=== PATIENT | male | born 1975 | race Caucasian/White ===

== ENCOUNTER 2016-08-05 11:13 | Day surgery (SDC) | payer OTHER ==
[2016-08-03 10:20] LABS: BASOPHILS 0.5 %; BASOPHILS ABSOLUTE 0.03 10/3/uL (0.0-0.16); EOSINOPHILS 3.7 %; EOSINOPHILS ABSOLUTE 0.24 10/3/uL (0.0-0.53); HEMATOCRIT 41.7 % (40.0-51.0); HEMOGLOBIN 14.1 g/dL (13.6-17.8); IMMATURE GRANULOCYTES 0.2 %; IMMATURE GRANULOCYTES ABSOLUTE 0.01 10/3/uL (0.0-0.11); LYMPHOCYTES 36.8 %; LYMPHOCYTES ABSOLUTE 2.38 10/3/uL (0.67-4.30); MEAN CORPUS HGB CONC 33.8 g/dL (32.0-36.0); MEAN CORPUSCULAR HEMOGLOB 31.6 pg (26.0-34.0); MEAN CORPUSCULAR VOLUME 93.5 fL (80-100); MEAN PLATELET VOLUME 9.9 fL (9.2-13.0); MONOCYTES 9.3 %; NEUTROPHILS 49.5 %; NEUTROPHILS ABSOLUTE 3.21 10/3/uL (2.02-8.40); PLATELET COUNT 274 10/3/uL (150-400); RBC DISTRIBUTION WIDTH 12.8 % (12.0-16.0); RED CELL COUNT 4.46 10/6/uL (4.7-6.1); WHITE BLOOD CELLS 6.5 10/3/uL (4.5-10.5)
[2016-08-03 10:34] LABS: BUN (BLOOD UREA NITROGEN) 14 MG/DL (6-23); CALCIUM, SERUM 8.8 MG/DL (8.5-10.4); CHLORIDE, SERUM 106 MMOL/L (96-112); CO2 (CARBON DIOXIDE) 29 MMOL/L (24-34); CREATININE 0.83 MG/DL (0.70-1.30); GFR AFRICAN AMERICAN 128 ML/MIN (>=60); GFR NON AFRICAN AMERICAN 110 ML/MIN (>=60); GLUCOSE, SERUM 51 MG/DL (60-99); POTASSIUM, SERUM 3.6 MMOL/L (3.5-5.3); SODIUM, SERUM 143 MMOL/L (135-148)
[2016-08-03 13:27] LABS: ASCORBIC ACID (UR NOT ORDER) 40 (NEG); BILIRUBIN, URINE NEGATIVE (NEG); KETONE, URINE NEGATIVE (NEG); LEUKOCYTE ESTERASE(NOT OR NEG (NEG); WBC (NOT ORDERED) (RFLEX) 1 (0-5)
--- NOTE | ~2016-08-05 | OP ---
Record Of Operation [facility] [address] [place]. [address] NAME: TOÑO NELSON : 75 STATUS : [facility]#: [id number] AGE: 40 ADM/REG DATE : 08/05/16 MR#: [id number] REPORT SERV DATE: 08/11/16 DICTATED BY: ABHI GRIFFITH DATE: 08/11/16 REPORT STATUS : Draft TRANSCRIBED BY: MODL DATE: 08/11/16 DATE OF PROCEDURE: 08/05/2016 PREOPERATIVE DIAGNOSIS: Right inguinal hernia. POSTOPERATIVE DIAGNOSES: A rather unusual pantaloon type right inguinal hernia, with both direct and indirect components, and then the indirect component with the hernia sac containing an essentially adherent sliding component of small bowel. PROCEDURE: Angela Prolene 2 mesh, right inguinal hernia repair. SURGEON: Abhi Griffith M.D. ANESTHESIA: General laryngeal mask. ESTIMATED BLOOD LOSS: Nil. FLUIDS: Crystalloid. SPECIMEN: Hernia sac. DRAINS: None. COMPLICATION: None. CONDITION: Good. INDICATIONS: Mr. Nelson is a 40-year-old, who I had seen earlier in office with a right inguinal hernia that did not appear to be at risk for bowel incarceration, and was not terribly symptomatic. As time has gone by, the hernia had gotten bigger and more painful interfering with activity, and after reviewing the options, we are recommending proceeding with repair. With the unilateral hernia, I have recommended open mesh repair to which he is agreeable. PROCEDURE IN DETAIL: After being identified and marked in preop holding, he was brought to the OR, positioned in supine. General laryngeal mask anesthesia was induced. Time-out was performed. The abdomen was prepped and draped sterilely. He received Ancef intravenously. We marked out anatomic landmarks and infiltrated a 0.25% Marcaine solution at the anterior and superior iliac spine on the right, and then in the skin and subcu coursing medially towards the pubic tubercle. We incised in the anesthetized area, opening the subcutaneous layer with cautery, cauterizing and dividing the branches of the superficial recurring epigastric vein. The external oblique with a generous cord egressing was exposed. A self retaining retractor was applied. Additional Marcaine was infiltrated deep to the external oblique. The external oblique was then opened with a 15 blade scalpel followed by Metzenbaum scissors in a pushing fashion through the external ring. The leaflets of the external oblique were then carefully grasped with hemostats. The inguinal content dissected Record Of Operation [facility] [address] [place]. [address] NAME: TOÑO NELSON : 75 STATUS : [facility] PAT#: [id number] AGE: 40 ADM/REG DATE : 08/05/16 MR#: [id number] REPORT SERV DATE: 08/11/16 DICTATED BY: ABHI GRIFFITH DATE: 08/11/16 REPORT STATUS : Draft TRANSCRIBED BY: RAFAELA DATE: 08/11/16 out and then the self-retaining retractor moved deeper to hold the external oblique open. A very bulky cord with quite a bit of the adherence in both the canal and is across the pubic tubercle. We carefully dissected at the level of the pubic tubercle looping with a [place] drain. There was a significant amount of what appeared to be preperitoneal fat within the cord. We carefully dissected and exposed a rather generous amount of preperitoneal fat which was dissected out of the cord and reduced back into the preperitoneal plane. In the process of doing this, we identified the peritoneal sac which appeared quite thickened and reactive. The sac was empty, it was dissected out of the cord, and carefully opened to inspected, and there was noted to be a loop of small bowel intermittently adherent to the lumen of the sac being a sliding type component. I carefully grasped the bowel with the forceps and used Metzenbaum scissors, and dissected to clear the sac, and reduced it back into the peritoneal cavity. We then twisted the sac, suture ligated with 3-0 Vicryl, and then amputated the sac, and sending it off the field as specimen. We carefully inspected and there were several deeper layers of tissue running with cord in order to get this down to the pubic tubercle and not to loop with the original [place], this was carefully dissected, and looped with a [place]. In so doing, we exposed the herniated preperitoneal fat more medial to the internal ring representing a direct hernia. This was again, all dissected out, reduced into the preperitoneal plane, and we appeared to have now adequately dissected the operative field. A precut mesh was placed on the floor of canal, with the tails lateral, cord brought through the opening in the mesh as a keyhole. Interrupted 2-0 Ethibond sutures were placed adjacent to pubic tubercle and along the iliopubic tract to hold the mesh laterally. The mesh tails were overlapped, sutured to each other to re-create an internal ring, and the overlapped tails sutured to each other laterally to the iliopubic tract. I carefully placed medial sutures of the rectus sheath to hold the mesh smoothly, dominant iliohypogastric nerve was identified and clear of all sutures, I was not able to identify the ilioinguinal nerve in the operative field. I carefully assessed and had a tension-free repair of a good quality. We now broadly infiltrated the floor of the canal with the Marcaine solution. We removed the [place] drain, repositioned the self-retaining retractor, and closed the external oblique with running 3-0 Vicryl. Mary's fascia was closed with running 3-0 Vicryl. Dermis was closed in line with interrupted 3-0 Vicryl and the dermis itself was closed with running 4-0 Monocryl, followed by Benzoin, Steri-Strips, and sterile dressing. Mr. Nelson tolerated the surgery quite well. He was recovered from his anesthetic, extubated, and transported to recovery room in good condition. SARA/RAFAELA Abhi Griffith M.D. / [id number] CC: Record Of Operation [address] [address] NAME: TOÑO NELSON : 75 STATUS : [facility] PAT#: [id number] AGE: 40 ADM/REG DATE : 08/05/16 MR#: [id number] REPORT SERV DATE: 08/11/16 DICTATED BY: ABHI GRIFFITH DATE: 08/11/16 REPORT STATUS : Draft TRANSCRIBED BY: MODL DATE: 08/11/16 Danica Rodriguez JOHN D.
[~2016-08-05 11:13] MED LIST: ZOL50 PO
== END 2016-08-05 20:14 | disposition home or self-care (01) ==
LOC: SDC 11:13
PROVIDERS: Surgery
PROC: 0YU50JZ Supplement Right Inguinal Region with Synthetic Substitute, Open Approach (ICD-10-PCS; principal; 2016-08-05 12:45)
DX: K40.90 Unilateral inguinal hernia, without obstruction or gangrene, not specified as recurrent (principal); Q21.1 Atrial septal defect; Z88.0 Allergy status to penicillin; Z98.52 Vasectomy status
CPT/HCPCS: 80048; 81001; 85025; 88302; A9270-GY; C1781; J0690; J1885; J2250; J2270; J2405; J2710; J3010